=== PATIENT | female | born 1955 | race Caucasian/White ===

== ENCOUNTER → 2016-12-23 | Outpatient (CLI) | payer OTHER | END | disposition home or self-care (01) | LOC: LAB.O 08:26 | PROVIDERS: ATTEND Family Medicine | DX: I10 Essential (primary) hypertension (principal); R73.9 Hyperglycemia, unspecified; E04.9 Nontoxic goiter, unspecified ==

== ENCOUNTER → 2017-09-22 | Outpatient (CLI) | payer OTHER | END | disposition home or self-care (01) | LOC: LAB.O 10:25 | PROVIDERS: ATTEND Family Medicine | DX: E03.9 Hypothyroidism, unspecified (principal); I10 Essential (primary) hypertension; R73.9 Hyperglycemia, unspecified ==

== ENCOUNTER → 2018-03-19 | Outpatient (CLI) | payer OTHER | LOC: GMAM 11:39 | PROVIDERS: ATTEND Family Medicine | DX: E03.9 Hypothyroidism, unspecified (principal) ==

== ENCOUNTER → 2018-03-21 | Outpatient (CLI) | payer OTHER ==
--- NOTE | 2018-03-25 08:24 | MAM ---
EXAM DESCRIPTION: 3D Screening BILATERAL : Digital Mammography. CLINICAL HISTORY: 62 years Female SCREEN . No complaints. Remote family history of breast cancer. Childbirth. Hysterectomy. No HRT. COMPARISON: Digital screening bilateral study 03/01/2016. No prior reports available. TECHNIQUE: Bilateral CC and MLO projection full-field images, 3-D tomosynthesis digital mammographic technique. CAD not utilized. FINDINGS: The breast parenchymal density pattern is: Scattered areas of fibroglandular density. No skin thickening or nipple retraction. Solitary microcalcifications bilaterally. No new focal, stellate mass or density, focal asymmetry , and no suspicious microcalcifications bilaterally. Stable mammograms compared to prior study, taking into account differences in mammographic technique. IMPRESSION: BI-RADS CATEGORY: 2 - BENIGN FINDINGS. FOLLOW UP: Routine digital bilateral screening, one year interval from March 2018. Written communication explaining the IMPRESSION and follow-up, will be mailed to the patient and referring health care provider. According to the [employer], yearly mammograms are recommended starting at age 40 and continuing as long as a woman is in good health. Any breast change noted on a breast self-exam should be reported promptly to the patient's healthcare provider. Breast MRI is recommended for women with an approximately 20-25% or greater lifetime risk of breast cancer, including women with a strong family history of breast or ovarian cancer and women who have been treated for Hodgkin's disease. A negative mammographic report should not delay tissue diagnosis in patients with significant clinical history or physical findings. Extremely dense breast tissue limits the sensitivity of digital mammography. Electronically signed by: Nicanor Guerrero MD 03/25/2018 8:22 AM CDT
== END ==
LOC: MAMMO 09:30
PROVIDERS: ATTEND Family Medicine
DX: Z12.31 Encounter for screening mammogram for malignant neoplasm of breast (principal)

== ENCOUNTER → 2019-08-12 | Outpatient (CLI) | payer OTHER ==
--- NOTE | 2019-08-15 17:33 | MAM ---
EXAM DESCRIPTION: 3D Screening BILATERAL : Digital Mammography. CLINICAL HISTORY: 63 years Female ANNUAL SCREENING . No complaints. No personal history of breast cancer. Remote family history of breast cancer. Menarche age 13. Childbirth age 25. Postmenopausal postmenopausal age unknown. No HRT. Benign right breast biopsy.. Lifetime risk of developing breast cancer (Tyrer-Cuzick model)(%): 7.8 COMPARISON: Bilateral screening digital breast tomosynthesis 21 March 2018. TECHNIQUE: Bilateral CC and MLO projection full-field mages, digital tomosynthesis mammographic technique. Bilateral digital 2-D full-field MLO images. CAD not available for tomosynthesis or 2-D images. FINDINGS: The breast parenchymal density pattern is: Scattered areas of fibroglandular density. No skin thickening or nipple retraction. Bilateral solitary microcalcifications. Fibroglandular densities more nodular in the left breast. No new focal, stellate mass or density, focal asymmetry , and no suspicious microcalcifications bilaterally. Stable mammograms compared to prior study. IMPRESSION: Benign exam. BIRAD CATEGORY: 2 BENIGN FINDINGS. RECOMMENDATIONS: FOLLOW UP: Routine digital bilateral mammographic screening, one year interval from date Written communication explaining the IMPRESSION and follow-up, will be mailed to the patient and referring health care provider. The FINDINGS and the FOLLOW-UP plan were reviewed in person with the patient after the examination. The FINDINGS and the FOLLOW-UP plan were reviewed by Dr. Guerrero during video conference with the patient after the examination. According to the [employer], yearly mammograms are recommended starting at age 40 and continuing as long as a woman is in good health. Any breast change noted on a breast self-exam should be reported promptly to the patient's healthcare provider. Breast MRI is recommended for women with an approximately 20-25% or greater lifetime risk of breast cancer, including women with a strong family history of breast or ovarian cancer and women who have been treated for Hodgkin's disease. A negative mammographic report should not delay tissue diagnosis in patients with significant clinical history or physical findings. Extremely dense breast tissue limits the sensitivity of digital mammography. Electronically signed by: Nicanor Guerrero MD 08/15/2019 5:31 PM [facility]
== END ==
LOC: MAMMO 13:30
PROVIDERS: ATTEND Family Medicine
DX: Z12.31 Encounter for screening mammogram for malignant neoplasm of breast (principal)

== ENCOUNTER → 2019-10-19 | Outpatient (CLI) | payer OTHER | LOC: LAB.O 08:48 | PROVIDERS: ATTEND Family Medicine | DX: I10 Essential (primary) hypertension (principal); E03.9 Hypothyroidism, unspecified; E78.2 Mixed hyperlipidemia ==

== ENCOUNTER → 2020-01-04 | Outpatient (CLI) | payer OTHER | LOC: LAB.O 08:42 | PROVIDERS: ATTEND Internal Medicine | DX: E04.1 Nontoxic single thyroid nodule (principal); R53.83 Other fatigue; R73.9 Hyperglycemia, unspecified ==

== ENCOUNTER 2020-07-24 17:40 | Emergency (ER) | payer OTHER ==
[2020-07-24] MEDS ORDERED: DEXAMETHASONE INJ 10 MG/ML VIAL IM ONE (18:05)
--- NOTE | 2020-07-24 18:06 | ED.PDOC ---
History of Present Illness - General Chief Complaint: Respiratory Problem Stated Complaint: low sats Time Seen by Provider: 07/24/20 18:04 Source: patient, RN notes reviewed, Vital Signs reviewed - History of Present Illness Comments: This is a 64-year-old female history of hypertension sent over from [facility] for positive Covid test and sats of 92 to 93% on room air. She states she has had sore throat, runny nose, mild cough for the past 3 to 4 days. She tested positive for Covid via blood antibody test in January. She does work at the [employer] and has had known contacts over the last month. Her is also had mild URI symptoms for the past 2 weeks. She reports a subjective fever, no vomiting or diarrhea. She denies any shortness of breath. Home Medications: Ambulatory Orders Albuterol Inhaler [Ventolin Hfa Inhaler] 1 - 2 puff INH Q4H PRN #1 inh 07/24/20 Ibuprofen [Motrin] 400 mg PO Q6H PRN #20 tab 07/24/20 Ondansetron Odt [Zofran ODT] 4 - 8 mg PO Q6H PRN #15 tab 07/24/20 guaiFENesin W/CODEINE LIQ [Robitussin AC] 10 ml PO Q6H PRN #150 ml 07/24/20 Review of Systems - Review of Systems Constitutional: States: chills, fever, malaise EENTM: States: nose congestion, throat pain. Denies: ear pain, throat swelling Respiratory: States: cough. Denies: short of breath, wheezing Cardiology: Denies: chest pain, edema Gastrointestinal/Abdominal: Denies: abdominal pain, diarrhea, nausea, vomiting Genitourinary: Denies: dysuria, hematuria Musculoskeletal: States: muscle pain. Denies: joint pain, joint swelling Skin: Denies: lesions, lumps Neurological: States: headache. Denies: tingling, weakness Endocrine: States: no symptoms reported Hematologic/Lymphatic: States: no symptoms reported Past Medical History (General) - Patient Medical History Hx MRSA: Yes - Chest 2006 MRSA Source:: Wound Family Medical History - Family History Mother Family History: Unknown Physical Exam - Physical Exam General Appearance: Alert, Comfortable ENT Exam: normal ENT inspection, other - Oropharyngeal exam deferred due to positive Covid test Neck: full range of motion, supple Respiratory: chest non-tender, lungs clear, normal breath sounds, no respiratory distress, no accessory muscle use Cardiovascular/Chest: normal peripheral pulses, no edema, no gallop, no JVD, no murmur, tachycardia Gastrointestinal/Abdominal: non tender, soft Neurologic: no motor/sensory deficits, alert, normal mood/affect, oriented x 3 Skin Exam: normal color, warm/dry Progress - Progress Progress: 07/24/20 18:57 Patient is well-appearing, well-hydrated, no respiratory distress. Chest x-ray is clear, sats 95% on room air. She is mildly tachycardic but otherwise well- appearing. I do not feel she warrants any further work-up aside from chest x-ray. She has a known COVID-19 infection. My suspicion for PE, will defer blood work/CTA chest at this time. Will treat symptomatically. Recommended follow-up with PCP in 5 to 7 days, strict warnings given to return to the emergency room for shortness of breath, intractable vomiting, changes in mental status, or new concerns. Stressed importance of home quarantine for at least 2 weeks, strict mask wearing, strict handwashing. DDx: COVID-19, bronchitis, pneumonia Hayder Gusman DO [facility] #[id number] - Results/Orders Results/Orders: EXAM: Chest,1 View CLINICAL INDICATION: Cough COMPARISON: There is no previous study for comparison. FINDINGS: A single view of the chest was obtained. The heart size is normal. The pulmonary vascularity is unremarkable. The lungs are clear. There is no consolidation, infiltrate, pleural effusion, or pneumothorax. IMPRESSION: No evidence of active pulmonary disease. Electronically signed by: Adam Barclay MD 07/24/2020 6:36 PM Departure - Departure Clinical Impression: Lower respiratory tract infection due to COVID-19 virus Disposition: Discharge to Home or Self Care Condition: Good Departure Forms: ED Discharge - Pt. Copy, ED Discharge - Work Release, Patient Portal Self Enrollment Instructions: Acute Bronchitis, Adult (DC), Coronavirus Disease 2019 (COVID-19) Referrals: Willian Oreilly MD [Primary Care Provider] - 1 Week Prescriptions: Ibuprofen [Motrin] 400 mg PO Q6H PRN #20 tab PRN Reason: Pain guaiFENesin W/CODEINE LIQ [Robitussin AC] 10 ml PO Q6H PRN #150 ml PRN Reason: Cough Albuterol Inhaler [Ventolin Hfa Inhaler] 1 - 2 puff INH Q4H PRN #1 inh PRN Reason: Shortness Of Breath Ondansetron Odt [Zofran ODT] 4 - 8 mg PO Q6H PRN #15 tab PRN Reason: Nausea Home Medications: Ambulatory Orders Albuterol Inhaler [Ventolin Hfa Inhaler] 1 - 2 puff INH Q4H PRN #1 inh 07/24/20 Ibuprofen [Motrin] 400 mg PO Q6H PRN #20 tab 07/24/20 Ondansetron Odt [Zofran ODT] 4 - 8 mg PO Q6H PRN #15 tab 07/24/20 guaiFENesin W/CODEINE LIQ [Robitussin AC] 10 ml PO Q6H PRN #150 ml 07/24/20 Additional Instructions: Drink plenty of fluids, rest. Activity as tolerated. Do not go out in public, wash hands frequently, wear a mask.
--- NOTE | 2020-07-24 18:38 | RAD ---
EXAM: Chest,1 View CLINICAL INDICATION: Cough COMPARISON: There is no previous study for comparison. FINDINGS: A single view of the chest was obtained. The heart size is normal. The pulmonary vascularity is unremarkable. The lungs are clear. There is no consolidation, infiltrate, pleural effusion, or pneumothorax. IMPRESSION: No evidence of active pulmonary disease. Electronically signed by: Adam Barclay MD 07/24/2020 6:36 PM [facility]
[2020-07-24 18:52] VITALS: BP 151/87; TEMP 97.4; O2SAT 93
== END 2020-07-24 18:52 | disposition home or self-care (01) ==
LOC: ER 17:40
DX: U07.1 COVID-19 (principal); J22 Unspecified acute lower respiratory infection; Z86.19 Personal history of other infectious and parasitic diseases; Z79.899 Other long term (current) drug therapy

== ENCOUNTER → 2020-07-27 | Outpatient (CLI) | payer OTHER | LOC: GMAM 14:28 | PROVIDERS: ATTEND Family Medicine | DX: U07.1 COVID-19 (principal); R09.02 Hypoxemia; R71.8 Other abnormality of red blood cells ==